=== PATIENT | male | born 1995 | race Caucasian/White ===

== ENCOUNTER 2017-02-12 06:26 | Emergency (ER) | payer MEDICAID ==
[~2017-02-12] VITALS: Ht 177.8 cm; Wt 63.6 kg
[2017-02-12] MEDS ORDERED: IBUPROFEN 600MG TABLET PO ONE (07:00)
[2017-02-12 08:03] VITALS: BP 112/64
== END 2017-02-12 08:04 | disposition home or self-care (01) ==
LOC: ER 06:26
DX: M79.644 Pain in right finger(s) (principal); F17.200 Nicotine dependence, unspecified, uncomplicated; F12.10 Cannabis abuse, uncomplicated; Z98.890 Other specified postprocedural states
CPT/HCPCS: 73130; 99284; Z7610

== ENCOUNTER 2017-08-01 17:08 | Emergency (ER) | payer MEDICAID ==
[~2017-08-01] VITALS: Ht 180.3 cm; Wt 59.0 kg
[2017-08-01 17:40] VITALS: BP 141/93
== END 2017-08-01 21:30 | disposition left against medical advice (07) ==
LOC: ER 18:07
DX: R07.89 Other chest pain (principal)
CPT/HCPCS: 71045; 99283

== ENCOUNTER 2018-03-19 15:24 | Emergency (ER) | payer MEDICAID ==
[~2018-03-19] VITALS: Ht 177.8 cm; Wt 61.3 kg
[2018-03-19] MEDS ORDERED: LORAZEPAM 0.5MG TABLET PO ONE (17:30)
[2018-03-19 17:58] LABS: CLARITY URINE CLEAR (CLEAR); COLOR URINE YELLOW (YELLOW); KETONES URINE 2+ (NEGATIVE); LEUKOCYTE ESTERASE URINE TRACE (NEGATIVE); NITRITE URINE NEGATIVE (NEGATIVE); OCCULT BLOOD URINE NEGATIVE (NEGATIVE); PROTEIN URINE TRACE (NEGATIVE); SPECIFIC GRAVITY URINE 1.021 (1.005-1.030)
[2018-03-19 18:11] LABS: *AMPHETAMINES SCREEN URINE PRESUMTIVE POSITIVE (NEGATIVE); *BARBITURATES SCREEN URINE NEGATIVE (NEGATIVE); *BENZODIAZEPINES SCREEN URINE NEGATIVE (NEGATIVE); *COCAINE SCREEN URINE NEGATIVE (NEGATIVE); METHADONE URINE SCREEN NEGATIVE (NEGATIVE)
[2018-03-19 18:12] LABS: CANNABINOID URINE SCREEN PRESUMTIVE POSITIVE (NEGATIVE); OPIATES URINE SCREEN NEGATIVE (NEGATIVE); PHENCYCLIDINE URINE SCREEN NEGATIVE (NEGATIVE)
[2018-03-19 18:47] LABS: CHLORIDE 107 mEq/L (98-107)
[2018-03-19 18:49] LABS: EOSINOPHILS % 4.8 % (0.0-5.0); HEMATOCRIT. 40.6 % (42.0-52.0); HEMOGLOBIN. 13.8 g/dL (14.0-18.0); LYMPHOCYTES % 26.9 % (20.0-50.0); MEAN CORPUSCULAR HEMOGLOBIN 29.4 pg (28.0-32.0); MEAN CORPUSCULAR VOLUME 86.7 fL (80.0-94.0); MEAN PLATELET VOLUME 8.1 fl (7.4-10.4); MONOCYTES % 6.3 % (2.0-8.0); PLATELET 264 x1000/uL (130-400); RED BLOOD CELL COUNT 4.69 mill/uL (4.7-6.1); RED CELL DISTRIBUTION WIDTH 13.4 % (11.6-14.6)
[2018-03-19 18:55] LABS: CREATINE KINASE 68 IU/L (39-308)
[2018-03-19 19:20] VITALS: BP 110/75
== END 2018-03-19 19:20 | disposition home or self-care (01) ==
LOC: ER 15:24
DX: M79.18 Myalgia, other site (principal); R20.2 Paresthesia of skin; F15.10 Other stimulant abuse, uncomplicated; F12.10 Cannabis abuse, uncomplicated; F17.200 Nicotine dependence, unspecified, uncomplicated
CPT/HCPCS: 36415; 80048; 80305; 82550; 93005; 99284

== ENCOUNTER 2018-08-28 22:05 | Emergency (ER) | payer MEDICAID ==
[~2018-08-28] VITALS: Ht 180.3 cm; Wt 59.0 kg
[2018-08-28 23:09] VITALS: BP 103/67
== END 2018-08-29 03:39 | disposition left against medical advice (07) ==
LOC: ER 23:42
DX: R11.10 Vomiting, unspecified (principal); R53.1 Weakness; Z53.21 Procedure and treatment not carried out due to patient leaving prior to being seen by health care provider

== ENCOUNTER 2022-11-11 13:41 | Emergency (ER) | payer SELFPAY ==
[~2022-11-11] VITALS: Ht 177.8 cm; Wt 68.0 kg
[2022-11-11 13:44] VITALS: BP 120/79; PULSE 65; RESP 18; TEMP 98.7; O2SAT 100
[2022-11-11 14:32] LABS: BASOPHILS % 0.9 % (0.0-2.0); EOSINOPHILS % 0.4 % (0.0-5.0); HEMATOCRIT. 39.7 % (42.0-52.0); HEMOGLOBIN. 13.2 g/dL (14.0-18.0); LYMPHOCYTES % 32.7 % (20.0-50.0); MEAN CORPUSCULAR HEMOGLOBIN 29.4 pg (28.0-32.0); MEAN CORPUSCULAR HGB CONC 33.2 g/dL (31.0-37.0); MEAN CORPUSCULAR VOLUME 88.5 fL (80.0-94.0); MEAN PLATELET VOLUME 8.6 fl (7.4-10.4); MONOCYTES % 6.7 % (2.0-8.0); NEUTROPHILS % 59.3 % (40.0-76.0); PLATELET 221 x1000/uL (130-400); RED BLOOD CELL COUNT 4.49 mill/uL (4.7-6.1); RED CELL DISTRIBUTION WIDTH 13.9 % (11.6-14.6); WHITE BLOOD COUNT 6.1 x1000/uL (4.5-11.0)
[2022-11-11 14:36] LABS: CHLORIDE 110 mEq/L (98-107); INDEX HEMOLYSI 1 (1-3); INDEX ICTERIC 1 (1-4); INDEX LIPEMIC 1 (1-3); POTASSIUM 3.9 mEq/L (3.5-5.1); SODIUM 139 mEq/L (136-145)
[2022-11-11 14:44] LABS: ALANINE AMINOTRANSFERASE 19 IU/L (13-61); ALBUMIN 4.5 g/dL (3.4-5.0); ASPARTATE AMINOTRANSFERASE 15 IU/L (15-37); BILIRUBIN TOTAL 0.5 mg/dL (0.1-1.0); CALCIUM 9.9 mg/dL (8.5-10.1); CARBON DIOXIDE 27 mEq/L (21-32); CREATININE 0.9 mg/dL (0.6-1.3); GLUCOSE 98 mg/dL (70-105); UREA NITROGEN BLOOD 14 mg/dL (7-21)
== END 2022-11-11 16:35 | disposition home or self-care (01) ==
LOC: ER 13:41
DX: R07.89 Other chest pain (principal); R00.2 Palpitations; F12.10 Cannabis abuse, uncomplicated
CPT/HCPCS: 36415; 71045; 80053; 85025; 85379; 93005; 99285

== ENCOUNTER 2024-09-22 16:00 | Emergency (ER) | payer SELFPAY ==
[~2024-09-22] VITALS: Ht 172.7 cm; Wt 75.0 kg
[2024-09-22 16:01] VITALS: TEMP 36.7; O2SAT 98
[2024-09-22] MEDS: VISCOUS LIDOCAINE 2% 15 ML UDC MM STA (17:19)
[2024-09-22] MEDS: IBUPROFEN 800MG TABLET PO ONE (17:19)
[2024-09-22 17:36] VITALS: BP 127/79; PULSE 84; RESP 15; O2SAT 99
== END 2024-09-22 17:47 | disposition home or self-care (01) ==
LOC: ER 16:00
DX: R13.10 Dysphagia, unspecified (principal); F12.90 Cannabis use, unspecified, uncomplicated
CPT/HCPCS: 70360; 99283